=== PATIENT | female | born 1965 ===

== ENCOUNTER 2016-11-01 09:26 | Outpatient (CLI) | payer OTHER ==
--- NOTE | 2016-11-01 11:02 | Mammography Report ---
BILATERAL MAMMOGRAM: History: No prior mammogram. 2 weeks of generalized and sporadic bilateral breast pain. FINDINGS: breasts are almost entirely fat (<25% glandular). No mass, distortion, suspicious calcification, or skin change is seen. CAD was utilized. IMPRESSION: Negative mammogram. RECOMMENDATION: Clinical followup. Additional evaluation at this time should be based on your concern, otherwise follow-up per ACS guidelines. BI-RADS CATEGORY: 1 = Negative ACR BI-RADS MAMMOGRAPHIC CODES: 0 = Needs additional imaging evaluation; 1 = Negative; 2 = Benign; 3 = Probably benign; 4 = Suspicious; 5 = Malignant; 6 = Known biopsy-proven malignancy COMMENT: 1. Dense breast tissue, i.e., adenosis, fibrocystic changes, etc., may obscure an underlying neoplasm. 2. Approximately 10% of cancers are not detected with mammography. 3. A negative mammography report should not delay biopsy if a clinically suspicious mass is present. COMMENT: Patient follow-up letters are generated in [employer].
== END 2016-11-01 09:27 | disposition home or self-care (01) ==
LOC: SPVWC 09:26
PROVIDERS: ATTEND Family Medicine
DX: N63 Unspecified lump in breast (principal); N64.4 Mastodynia
CPT/HCPCS: 77066; G0204